=== PATIENT | male | born 1960 | race Caucasian/White ===

== ENCOUNTER 2017-04-15 13:49 | Emergency (ER) | payer OTHER ==
[~2017-04-15] VITALS: Ht 182.9 cm; Wt 69.1 kg
[~2017-04-15 13:49] MED LIST: ASPIRIN EC325 MG PO; BACTRIM,SEPT1 TABLET PO; COMPLERA TABLE1 EACH PO; GABAPENTIN400 MG PO; LITHIUM CARBON300 MG PO; NAPROSYN500 MG PO; PROAIR RESPICL90 MCG IH; SYMBICORT60 INHALA1 IH; TRAZODONE HCL100 MG PO; ULTRAM50 MG PO; WELLBUTRIN XL300 MG PO
[2017-04-15 17:55] VITALS: BP 130/80
== END 2017-04-15 17:56 | disposition home or self-care (01) ==
LOC: EME 13:49
DX: S09.90XA Unspecified injury of head, initial encounter (principal); R07.81 Pleurodynia; Y04.2XXA Assault by strike against or bumped into by another person, initial encounter; Y92.009 Unspecified place in unspecified non-institutional (private) residence as the place of occurrence of the external cause; Z79.82 Long term (current) use of aspirin; F17.200 Nicotine dependence, unspecified, uncomplicated
CPT/HCPCS: 70450; 99281; 99283

== ENCOUNTER 2017-04-17 16:48 | Emergency (ER) | payer OTHER ==
[~2017-04-17] VITALS: Ht 170.2 cm; Wt 98.1 kg
[2017-04-17 17:32] LABS: HEMATOCRIT 40.8 % (38.0-50.0); MCH 31.5 PG (29.0-34.0); MCHC 32.8 G/DL (30.0-36.0); MEAN PLAT.VOLUME 9.6 uM^3 (9.0-12.4); PLATELET COUNT 259 K/uL (156-360); RBC DIS.WIDTH-CV 12.5 % (11.8-14.6); RBC DIS.WIDTH-SD 44.1 % (39-53); RED BLOOD COUNT 4.25 M/uL (4.00-5.50); WHITE BLOOD COUNT 10.2 K/uL (4.1-10.2)
[2017-04-17 17:49] LABS: ADD MIUA? NO; BILIRUBIN NEGATIVE; BLOOD NEGATIVE; COLOR YELLOW ((YELLOW)); GLUCOSE (STRIP) NEGATIVE; KETONES NEGATIVE; LEUKOCYTES NEGATIVE; NITRITE NEGATIVE; PROTEIN (STRIP) 30; SPECIFIC GRAVITY 1.009 (1.000-1.030); UCUL ADDED? NO; UROBILINOGEN 0.2 MG/DL (0.2-1.0)
[2017-04-17 17:54] LABS: CHLORIDE 105 mEq/L (99-109); POTASSIUM 4.6 mEq/L (3.7-5.4); SODIUM 138 mEq/L (136-147)
[2017-04-17 17:56] LABS: AMPHETAMINE NEGATIVE (500 ng/mL); BARBITURATES NEGATIVE (200 ng/mL); BENZODIAZEPINES NEGATIVE (150 ng/mL); COCAINE NEGATIVE (150 ng/mL); INTERNAL CONTROLS VALID? YES; METHADONE NEGATIVE (200 ng/mL); METHAMPHETAMINE NEGATIVE (500 ng/mL); OPIATES (MORPHINE) NEGATIVE (100 ng/mL); OXYCODONE NEGATIVE (100 ng/mL); PHENCYCLIDINE NEGATIVE (25 ng/mL); PROPOXYPHENE NEGATIVE (300 ng/mL); THC CANNABINOIDS NEGATIVE (50 ng/mL); TRICYCLIC ANTIDEPRESSANTS NEGATIVE (300 ng/mL)
[2017-04-17 17:56] LABS: GLUCOSE 83 mg/dL (70-99)
[2017-04-17 17:57] LABS: ANION GAP 8 MEQ/L (2-14)
[2017-04-17 17:58] LABS: TOTAL BILIRUBIN 0.6 mg/dL (0.0-1.0)
[2017-04-17 17:59] LABS: SERUM ETHYL ALCOHOL < 10 mg/dL
[2017-04-17 18:00] LABS: ALKALINE PHOSPHATASE 84 IU/L (3-129); GFR ESTIMATE (CALCULATED) 56 mL/min/
[2017-04-17 18:01] LABS: UREA NITROGEN (BUN) 12 mg/dL (9-23)
[2017-04-17 22:42] VITALS: BP 130/71
== END 2017-04-17 22:42 ==
LOC: EME 16:48
PROVIDERS: Emergency Medicine
DX: F33.1 Major depressive disorder, recurrent, moderate (principal); R45.851 Suicidal ideations; F17.200 Nicotine dependence, unspecified, uncomplicated
CPT/HCPCS: 80053; 81003; 85027; 90837; 99281; 99285; G0480

== ENCOUNTER 2018-04-14 11:32 | Emergency (ER) | payer OTHER ==
[~2018-04-14] VITALS: Ht 182.9 cm; Wt 66.4 kg
[2018-04-14] MEDS ORDERED: MOBIC7.5 MG PO (13:28)
[2018-04-14] MEDS ORDERED: FLEXERIL10 MG PO (13:28)
[2018-04-14 13:37] VITALS: BP 146/91
== END 2018-04-14 13:50 | disposition home or self-care (01) ==
LOC: EME 11:32
DX: S39.012A Strain of muscle, fascia and tendon of lower back, initial encounter (principal); Y04.0XXA Assault by unarmed brawl or fight, initial encounter; F17.200 Nicotine dependence, unspecified, uncomplicated; Z21 Asymptomatic human immunodeficiency virus [HIV] infection status; F31.9 Bipolar disorder, unspecified; Z88.0 Allergy status to penicillin
CPT/HCPCS: 71046; 72100; 99281; 99284